=== PATIENT | male | born 1960 | race Caucasian/White ===

== ENCOUNTER 2017-07-01 10:28 | Day surgery (SDC) | payer OTHER ==
[~2017-07-01] VITALS: Ht 180.3 cm; Wt 79.3 kg
[~2017-07-01 10:28] MED LIST: CENTRUM SILVER1 EAC3 PO; LO-DOSE ASPIRIN81 M1 PO; MULTIVIT A B D PO
[2017-07-01 10:57] VITALS: BP 119/76
[2017-07-01 15:25] VITALS: BP 160/92
[2017-07-01 16:24] VITALS: BP 150/68
== END 2017-07-01 16:25 | disposition home or self-care (01) ==
LOC: SDC 10:28
DX: M19.011 Primary osteoarthritis, right shoulder (principal); M25.811 Other specified joint disorders, right shoulder; Z79.82 Long term (current) use of aspirin; Z87.891 Personal history of nicotine dependence
CPT/HCPCS: J0131; J0330; J0690; J1100; J1170; J1885; J2175; J2250; J2405; J2795; J3010